=== PATIENT | female | born 1995 | race Caucasian/White ===

== ENCOUNTER 2024-01-22 08:39 | Observation (INO) | payer SELFPAY ==
[2024-01-22 08:58] VITALS: BP 118/56; PULSE 90
[2024-01-22 09:01] LABS: Glucometer 114 mg/dL (74-106)
[2024-01-22 09:14] LABS: Bilirubin Urine NEGATIVE (NEGATIVE); Blood Urine NEGATIVE (NEGATIVE); Clarity Urine CLEAR (CLEAR); Color Urine YELLOW (YELLOW); Glucose Urine UA NEGATIVE (NEGATIVE); Ketones Urine NEGATIVE (NEGATIVE); Leukocyte Esterase Urine NEGATIVE (NEGATIVE); Nitrite Urine NEGATIVE (NEGATIVE); Protein Urine NEGATIVE (NEG/TRACE); Specific Gravity Urine 1.025 (1.005-1.025); pH Urine 6.5 (5.0-9.0)
[2024-01-22 09:17] LABS: Urine Microscopic Indicated NO
== END 2024-01-22 09:46 | disposition home or self-care (01) ==
PROVIDERS: Admitting Provider Obstetrics & Gynecology; Visit Provider Obstetrics & Gynecology
DX: O26.892 Other specified pregnancy related conditions, second trimester (principal); Z3A.25 25 weeks gestation of pregnancy; R55 Syncope and collapse; R53.1 Weakness
CPT/HCPCS: 36415; 81003; 82948; G0378; G0379